=== PATIENT | male | born 1975 ===

== ENCOUNTER 2024-08-03 22:01 | Outpatient (REF) | payer BC, SELFPAY | END 2024-08-03 22:02 | disposition home or self-care (01) | LOC: NCHCN 22:01 | PROVIDERS: PCP Family Medicine; Visit Provider Family Medicine | DX: R30.0 Dysuria (principal); R82.89 Other abnormal findings on cytological and histological examination of urine | CPT/HCPCS: 87086 ==

== ENCOUNTER 2024-08-12 20:10 | Outpatient (REF) | payer BC, SELFPAY ==
[2024-08-12 21:25] LABS: HGB 9.6 g/dL (13.5-17.5); MCH 22.6 pg (27.0-33.0); MPV 11.3 fL (8.0-11.0); Platelet Count 500 10^3/uL (130-400); RBC 4.24 10^6/uL (4.36-5.78); RDW-SD 50.4 fL; WBC 12.52 10^3/uL (4.4-10.8)
[2024-08-12 21:50] LABS: ALT 40 U/L (16-63); AST 80 U/L (15-37); Albumin 2.4 g/dL (3.4-5.0); Alkaline Phosphatase 790 U/L (46-116); Anion Gap 5.8 mmol/L (3-11); BUN 6 mg/dL (7-18); Bilirubin, Total 1.78 mg/dL (0.2-1.0); CO2 30.2 mmol/L (21.0-32.0); CREATININE 0.8 mg/dL (0.70-1.30); Calcium 9.2 mg/dL (8.5-10.1); Chloride 95 mmol/L (98-107); Estimated GFR 109.85 (mL/min/1.73m2); Glucose 94 mg/dL (74-106); Potassium 4.3 mmol/L (3.5-5.1); Sodium 131 mmol/L (136-145); Total Protein 8.3 g/dL (6.4-8.2)
[2024-08-12 22:27] LABS: MCV 73 fL (80-95); RDW 20.2 % (11.8-14.1)
== END 2024-08-12 20:11 | disposition home or self-care (01) ==
LOC: NCHCN 20:10
PROVIDERS: PCP Family Medicine; Visit Provider Family Medicine
DX: D50.9 Iron deficiency anemia, unspecified (principal); E87.1 Hypo-osmolality and hyponatremia
CPT/HCPCS: 80053; 85027